=== PATIENT | female | born 1985 | race Caucasian/White ===

== ENCOUNTER 2019-02-09 18:45 | Emergency (ER) | payer BC ==
[2019-02-09 20:12] LABS: Absolute Lymphocytes (CBC) 2.5 K/uL (0.7-4.9); Absolute Monocytes 0.8 K/uL (0.1-1.3); Absolute Neutrophil 8.6 K/uL (1.8-8.0); Basophils % 0.6 % (0-1.3); Eosinophils % 1.3 % (0-4.4); Lymphocytes % 20.7 % (15.3-44.8); MPV 8.5 fL (7.6-11.3); Monocytes % 6.6 % (3.3-12.3); RBC Red Blood Cell Count 4.77 M/uL (3.86-4.86)
[2019-02-09 20:26] LABS: Albumin 3.9 g/dL (3.4-5.0); Bilirubin Direct 0.1 mg/dL (0-0.2); Bilirubin Total 0.5 mg/dL (0.2-1.0); Potassium 3.5 mmol/L (3.5-5.1); Protein, Total 8.1 g/dL (6.4-8.2)
[2019-02-09 20:29] LABS: Urine Blood TRACE (NEG); Urine Glucose NEGATIVE (NEG); Urine Protein TRACE (NEG); Urine Specific Gravity >1.030 (1.005-1.030); Urine pH 5.5 (5.0-7.0)
[2019-02-09] MEDS ORDERED: MAGNE/ALUM HYDROXD 30 ML UCUP ONE (20:43)
[2019-02-09] MEDS ORDERED: LIDOCAINE VISCOUS 2% SOLN 15 ML UDC ONE (20:43)
[2019-02-09 21:05] LABS: Urine Bacteria 20-50 /HPF (<20); Urine Culture Reflex Order NOT NEEDED; Urine RBC <5 /HPF (NONE SEEN)
[2019-02-09] MEDS ORDERED: KETOROLAC 30 MG/ML INJ ONE (21:31)
--- NOTE | 2019-02-09 21:46 | ER ---
Nurse's Notes [facility] Name: Arely Reynolds Age: 33 yrs Sex: Female : 1985 Arrival Date: 02/09/2019 Time: 18:48 Bed 30 Private MD: Diagnosis: Upper abdominal pain, unspecified Presentation: 02/09 19:31 Presenting complaint: Patient states: I STARTED HAVING ABDOMINAL PAIN FOR MONTHS NOW. rv ON AND OFF AND IT GOT WORSE THIS LAST WEEK. I TOOK SOME ADVIL AND IT IS NOT WORKING. I VOMITED LAST NIGHT (X1). MY LAST BM TODAY THIS MORNING. Transition of care: patient was not received from another setting of care. Onset of symptoms was February 09, 2019 at 08:00. Risk Assessment: Do you want to hurt yourself or someone else? Patient reports no desire to harm self or others. Initial Sepsis Screen: Does the patient meet any 2 criteria? No. Patient's initial sepsis screen is negative. Does the patient have a suspected source of infection? No. Patient's initial sepsis screen is negative. Care prior to arrival: None. 19:31 Method Of Arrival: Ambulatory rv 19:31 Acuity: HETAL 3 rv Triage Assessment: 19:35 General: Appears in no apparent distress. comfortable, Behavior is calm, cooperative. rv Pain: Complains of pain in abdomen Quality of pain is described as aching. EENT: No signs and/or symptoms were reported regarding the EENT system. Neuro: Level of Consciousness is awake, alert, obeys commands, Oriented to person, place, time, situation. Cardiovascular: Capillary refill < 3 seconds. Respiratory: Airway is patent. GI: Abdomen is round Abd is soft and non tender X 4 quads. Reports lower abdominal pain. : No signs and/or symptoms were reported regarding the genitourinary system. Derm: Skin is intact. Musculoskeletal: No signs and/or symptoms reported regarding the musculoskeletal system. 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 - Social history:: Smoking status: Patient uses tobacco products, smokes one-half pack cigarettes per day. - Ebola Screening: : Patient negative for fever greater than or equal to 101.5 degrees Fahrenheit, and additional compatible Ebola Virus Disease symptoms Patient denies exposure to infectious person Patient denies travel to an Ebola-affected area in the 21 days before illness onset. Screenin:37 Abuse screen: Denies threats or abuse. Denies injuries from another. Nutritional rv screening: No deficits noted. Tuberculosis screening: No symptoms or risk factors identified. Fall Risk None identified. Assessment: 20:56 Reassessment: (triage notes). GI: Bowel sounds present X 4 quads. rv Vital Signs: 19:34 BP 157 / 102 LA; Pulse 83; Resp 18 S; Temp 99.4(O); Pulse Ox 95% on R/A; Weight 88.45 rv kg (R); Height 5 ft. 7 in. (170.18 cm) (R); Pain 9/10; 21:00 BP 152 / 98 RA; Pulse 79; Resp 19 S; Pulse Ox 97% on R/A; rv 21:56 BP 130 / 97 RA; Pulse 78; Resp 17 S; Pulse Ox 97% on R/A; rv 19:34 Body Mass Index 30.54 (88.45 kg, 170.18 cm) rv ED Course: 18:48 Patient arrived in ED. rg4 19:26 Jeff Gallardo MD is Attending Physician. gs 19:33 Triage completed. rv 19:37 Patient has correct armband on for positive identification. Placed in gown. Bed in low rv position. Call light in reach. Side rails up X 1. Adult w/ patient. Pulse ox on. NIBP on. 19:37 Patient placed in an exam room, on a stretcher, on pulse oximetry, Patient notified of rv wait time. 20:03 Initial lab(s) drawn, by me, sent to lab. Inserted saline lock: 22 gauge in left lt1 antecubital area, using aseptic technique. 21:46 Atul Bella MD is Referral Physician. gs 21:55 No provider procedures requiring assistance completed. IV discontinued, bleeding rv controlled, No redness/swelling at site. Pressure dressing applied. Administered Medications: 20:30 Drug: GI Cocktail without - (Maalox Suspension 30 ml, Lidocaine Liquid 2 % 15 rv ml) Route: PO; 21:23 Follow up: Response: Pain is unchanged, physician notified rv 21:22 Drug: TORadol 30 mg Route: IVP; Site: left antecubital; rv 21:54 Follow up: Response: Pain is decreased rv Outcome: 21:46 Discharge ordered by . gs 21:56 Discharged to home ambulatory. rv 21:56 Condition: good 21:56 Discharge instructions given to patient, family, Instructed on discharge instructions, follow up and referral plans. medication usage, Demonstrated understanding of instructions, follow-up care, medications, Prescriptions given X 1. 21:57 Patient left the ED. rv Signatures: Arlen Georges rg4 Jeff Gallardo MD MD Marcellus Bro RN RN Rylee Middleton 1
--- NOTE | 2019-02-09 21:46 | EDPHYS ---
Physician Documentation [facility] Name: Arely Reynolds Age: 33 yrs Sex: Female : 1985 Arrival Date: 02/09/2019 Time: 18:48 Bed 30 Private MD: ED Physician Jeff Gallardo HPI: 02/09 21:41 This 33 yrs old Female presents to ER via Ambulatory with complaints of gs Abdominal Pain. 21:41 The patient presents with abdominal pain in the upper abdomen. Onset: The gs symptoms/episode began/occurred 10 month(s) ago. Associated signs and symptoms: Pertinent negatives: nausea and vomiting, chest pain, constipation, diarrhea, dysuria, vomiting blood. The symptoms are described as burning, crampy. Modifying factors: the symptoms are aggravated by spicy food, occurs mostly at night. Severity of pain: At its worst the pain was moderate in the emergency department the pain has improved mildly. The patient has experienced similar episodes in the past, multiple times, chronically. 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 - Social history:: Smoking status: Patient uses tobacco products, smokes one-half pack cigarettes per day. - Ebola Screening: : Patient negative for fever greater than or equal to 101.5 degrees Fahrenheit, and additional compatible Ebola Virus Disease symptoms Patient denies exposure to infectious person Patient denies travel to an Ebola-affected area in the 21 days before illness onset. ROS: 21:41 All other systems are negative. gs Exam: 21:41 Head/Face: Normocephalic, atraumatic. Eyes: Pupils equal round and reactive to light, gs extra-ocular motions intact. Lids and lashes normal. Conjunctiva and sclera are non-icteric and not injected. Cornea within normal limits. Periorbital areas with no swelling, redness, or edema. ENT: Nares patent. No nasal discharge, no septal abnormalities noted. Tympanic membranes are normal and external auditory canals are clear. Oropharynx with no redness, swelling, or masses, exudates, or evidence of obstruction, uvula midline. Mucous membranes moist. Neck: Trachea midline, no thyromegaly or masses palpated, and no cervical lymphadenopathy. Supple, full range of motion without nuchal rigidity, or vertebral point tenderness. No Meningismus. Chest/axilla: Normal chest wall appearance and motion. Nontender with no deformity. No lesions are appreciated. Cardiovascular: Regular rate and rhythm with a normal S1 and S2. No gallops, murmurs, or rubs. Normal PMI, no JVD. No pulse deficits. Respiratory: Lungs have equal breath sounds bilaterally, clear to auscultation and percussion. No rales, rhonchi or wheezes noted. No increased work of breathing, no retractions or nasal flaring. Back: No spinal tenderness. No costovertebral tenderness. Full range of motion. Skin: Warm, dry with normal turgor. Normal color with no rashes, no lesions, and no evidence of cellulitis. MS/ Extremity: Pulses equal, no cyanosis. Neurovascular intact. Full, normal range of motion. Neuro: Awake and alert, GCS 15, oriented to person, place, time, and situation. Cranial nerves II-XII grossly intact. Motor strength 5/5 in all extremities. Sensory grossly intact. Cerebellar exam normal. Normal gait. 21:41 Constitutional: The patient appears alert, awake. 21:41 Abdomen/GI: Palpation: mild abdominal tenderness, in the epigastric area, rebound tenderness, is not appreciated. 21:41 ECG was reviewed by the Attending Physician. Vital Signs: 19:34 BP 157 / 102 LA; Pulse 83; Resp 18 S; Temp 99.4(O); Pulse Ox 95% on R/A; Weight 88.45 rv kg (R); Height 5 ft. 7 in. (170.18 cm) (R); Pain 9/10; 21:00 BP 152 / 98 RA; Pulse 79; Resp 19 S; Pulse Ox 97% on R/A; rv 21:56 BP 130 / 97 RA; Pulse 78; Resp 17 S; Pulse Ox 97% on R/A; rv 19:34 Body Mass Index 30.54 (88.45 kg, 170.18 cm) rv MDM: 19:41 Patient medically screened. gs 21:41 Differential diagnosis: gastritis, gastroesophageal reflux disease, non-specific abd gs pain. Data reviewed: vital signs, nurses notes, lab test result(s), EKG, radiologic studies. 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 Response to treatment: the patient's symptoms have markedly improved after treatment, and as a result, I will discharge patient. 21:47 Counseling: I had a detailed discussion with the patient and/or guardian regarding: the gs presence of at least one elevated blood pressure reading (>120/80) during this emergency department visit. Special discussion: I have referred the patient to see his PCP for further evaluation of high blood pressure. 02/09 19:44 Order name: Basic Metabolic Panel; Complete Time: 21:14 02/09 19:44 Order name: CBC with Diff; Complete Time: 20:18 02/09 19:44 Order name: Hepatic Function; Complete Time: 21:14 02/09 19:44 Order name: Lipase; Complete Time: 21:14 02/09 19:44 Order name: Urine Microscopic Only; Complete Time: 21:14 02/09 20:25 Order name: Urine Dipstick--Ancillary (enter results); Complete Time: 21:14 mw2 02/09 19:44 Order name: IV Saline Lock; Complete Time: 20:03 02/09 19:44 Order name: Labs collected and sent; Complete Time: 20:03 02/09 19:44 Order name: Urine Test (obtain specimen); Complete Time: 20:14 02/09 19:44 Order name: Urine Dipstick-Ancillary (obtain specimen); Complete Time: 20:14 02/09 19:44 Order name: EKG - Nurse/Tech; Complete Time: 20: 02/09 20:25 Order name: Urine --Ancillary (enter results); Complete Time: 21:14 mw2 EC:41 Rate is 73 beats/min. Rhythm is regular. SD interval is normal. QRS interval is normal. gs T waves are Normal. No ST changes noted. Clinical impression: Normal ECG. Interpreted by me. Administered Medications: 20:30 Drug: GI Cocktail without - (Maalox Suspension 30 ml, Lidocaine Liquid 2 % 15 rv ml) Route: PO; 21:23 Follow up: Response: Pain is unchanged, physician notified rv 21:22 Drug: TORadol 30 mg Route: IVP; Site: left antecubital; rv 21:54 Follow up: Response: Pain is decreased rv Disposition: 02/09/19 21:46 Discharged to Home. Impression: Upper abdominal pain, unspecified. - Condition is Stable. - Discharge Instructions: Abdominal Pain, Adult, Managing Your Hypertension. - Prescriptions for Prilosec 20 mg Oral Capsule, Delayed Release(E.C.) - take 1 capsule by ORAL route once daily; 30 capsule. - Medication Reconciliation Form, Thank You Letter, Antibiotic Education, Prescription Opioid Use form. - Follow up: Atul Bella MD; When: 2 - 3 days; Reason: Re-evaluation by your physician. Signatures: Dispatcher [employer] EDTX Jeff Gallardo MD MD Marcellus Bro RN RN rv Corrections: (The following items were deleted from the chart) 21:57 21:46 02/09/2019 21:46 Discharged to Home. Impression: Upper abdominal pain, rv unspecified. Condition is Stable. Forms are Medication Reconciliation Form, Thank You Letter, Antibiotic Education, Prescription Opioid Use. Follow up: Atul Bella; When: 2 - 3 days; Reason: Re-evaluation by your physician.
--- NOTE | 2019-02-10 12:51 | EKG ---
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
== END 2019-02-09 21:57 | disposition home or self-care (01) ==
LOC: ER 18:45
DX: R10.10 Upper abdominal pain, unspecified (principal); F17.210 Nicotine dependence, cigarettes, uncomplicated
CPT/HCPCS: 36415; 80048; 80076; 81003; 81015; 81025; 83690; 85025; 93005; 96374; 99284

== ENCOUNTER 2019-03-23 06:13 | Day surgery (SDC) | payer BC ==
[2019-03-20 14:56] LABS: Absolute Lymphocytes (CBC) 2.4 K/uL (0.7-4.9); Absolute Monocytes 0.4 K/uL (0.1-1.3); Absolute Neutrophil 5.1 K/uL (1.8-8.0); Basophils % 1.1 % (0-1.3); Eosinophils % 1.7 % (0-4.4); Hematocrit 43.8 % (36.0-45.0); Lymphocytes % 29.1 % (15.3-44.8); MPV 8.8 fL (7.6-11.3); Monocytes % 5.4 % (3.3-12.3); RBC Red Blood Cell Count 4.61 M/uL (3.86-4.86)
[2019-03-20 15:10] LABS: Potassium 3.7 mmol/L (3.5-5.1)
[2019-03-20 15:36] LABS: Albumin 3.6 g/dL (3.4-5.0); Bilirubin Direct 0.1 mg/dL (0-0.2); Bilirubin Total 0.5 mg/dL (0.2-1.0); Protein, Total 7.8 g/dL (6.4-8.2)
[2019-03-23] MEDS ORDERED: Ringers Lactate 1,000 ML IV ONE (06:59)
[2019-03-23] MEDS ORDERED: CEFOXITIN/SWI 1gm 0 GM/0 ML SYR ONE (07:06)
[2019-03-23] MEDS ORDERED: CEFOXITIN/SWI 1gm 1 GM/10 ML SYR ONE (07:20)
[2019-03-23] MEDS ORDERED: BUPIVACAINE 0.5% PF 10 ML VIAL ONE (07:24)
[2019-03-23] MEDS ORDERED: FENTANYL CITR 100 MCG/2 ML ONE ×3 (07:30→08:15)
[2019-03-23] MEDS ORDERED: LIDOCAINE 1% MPF 5 ML VIAL ONE (07:31)
[2019-03-23] MEDS ORDERED: ROCURONIUM 50 MG/5 ML VIAL IV ONE (07:31)
[2019-03-23] MEDS ORDERED: PROPOFOL 200 MG/20 ML VIAL IV ONE (07:31)
[2019-03-23] MEDS ORDERED: MIDAZOLAM HCL 2 MG/2 ML INJ ONE (07:31)
[2019-03-23] MEDS ORDERED: KETOROLAC 30 MG/ML INJ ONE (08:08)
[2019-03-23] MEDS ORDERED: GLYCOPYRROLATE 0.2 MG/ML SYR ONE (08:08)
[2019-03-23] MEDS ORDERED: ONDANSETRON 4 MG/2 ML VIAL ONE (08:09)
[2019-03-23] MEDS ORDERED: NEOSTIGMINE 1 MG/ML -10 ML VIAL ONE (08:09)
[2019-03-23] MEDS ORDERED: HYDROMORPHONE HCL 1 MG/ML INJ ONE (09:11)
[2019-03-23] MEDS ORDERED: CODEINE 30MG/APAP 300MG TAB ONE (09:43)
--- NOTE | 2019-03-23 18:38 | DS ---
Date of Discharge: 03/23/2019 The patient will go to the Day Surgery and home when stable. Disposition: Home. Condition: Stable. Discharge Instructions: Resume home medications and diet. Activity as tolerated. No heavy lifting. Remove outer dressing in 2 days. Shower. Keep wound clean and dry. Keep Steri-Strips on at all t imes. Follow up in my office in a week. Call for appointment. Tylenol No. 3 one tablet p.o. q.4 p. r.n. pain. Incentive spirometry as ordered. /MODL Voice ID: [id number] Report ID: [id number]
--- NOTE | 2019-03-23 18:38 | OP ---
Date of Procedure: 03/23/2019 Surgeon: Feliberto Sewell MD Building Mover: ERIK Bright. Preoperative Diagnoses: Chronic cholecystitis and biliary dyskinesia. Postoperative Diagnoses: Chronic cholecystitis and biliary dyskinesia with extensive adhesions in th e right upper quadrant. Procedures Performed: Laparoscopic cholecystectomy and extensive lysis of adhesions. Estimated Blood Loss: Minimal. Specimen: Gallbladder. Finding: As above. Anesthesia: General. Complications: None. Disposition: The patient tolerated the procedure in stable condition and taken to Recovery in good g eneral condition. Procedure In Detail: The patient was brought to the OR, placed in supine position. General anesthes ia was begun. The patient was prepped and draped in usual sterile fashion. Marcaine 0.5% was infilt rated locally. A 15-blade was used to make a 1 cm supraumbilical midline incision. Subcutaneous tis tee divided. Fascia was identified and divided, #1 Vicryl stay suture was placed. Peritoneal cavity was entered with blunt dissection. A 12-mm trocar was placed into the peritoneal cavity under direc t vision. Pneumoperitoneum was established and then three 5-mm trocars placed, 1 in the epigastrium just to the right of midline and 2 in the right subcostal region. 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 They were lysed with sharp dissection . Bleeding controlled with cautery. The gallbladder was chronically inflamed as well. Fundus retra cted superiorly. Infundibulum was identified and retracted inferolaterally. Cystic duct and cystic artery were clearly identified with blunt dissection. Clips placed. Both structures were divided. Cautery was used to remove the gallbladder from the liver bed. Bleeding on the liver bed was control led with cautery. The gallbladder was retrieved through the umbilicus via an EndoCatch bag. Right u pper quadrant was irrigated. Effluent was clear. No evidence of bleeding or bile leakage appreciate d. Subsequently, all trocars were removed under direct vision. Stay sutures were tied to each other to approximate the fascial defect. Subcu wounds were irrigated. Bleeding controlled with cautery. A 3-0 chromic used to reapproximate the subcutaneous tissue and close the skin. Sterile dressing wa s applied. The patient was awakened and taken to Recovery in good general condition. /MODL Voice ID: [id number] Report ID: [id number]
== END 2019-03-23 10:22 | disposition home or self-care (01) ==
LOC: OR 06:13
PROVIDERS: ATTEND Surgery
PROC: 0FT44ZZ Resection of Gallbladder, Percutaneous Endoscopic Approach (ICD-10-PCS; principal; 2019-03-23 07:30)
DX: K80.10 Calculus of gallbladder with chronic cholecystitis without obstruction (principal); K82.8 Other specified diseases of gallbladder; K66.0 Peritoneal adhesions (postprocedural) (postinfection); F17.210 Nicotine dependence, cigarettes, uncomplicated; Z79.899 Other long term (current) drug therapy
CPT/HCPCS: 36415; 80048; 80076; 81025; 82150; 85025; 88304; J1170; J2250; J2405; J2704; J2710; J3010